=== PATIENT | female | born 1955 | race Caucasian/White ===

== ENCOUNTER 2017-06-24 07:23 | Emergency (ER) | payer OTHER ==
[~2017-06-24 07:23] MED LIST: DULE100A PO
[2017-06-24 07:29] VITALS: BP 181/88; PULSE 88; RESP 18; TEMP 97.4; O2SAT 99
--- NOTE | 2017-06-24 07:41 | PD ---
HPI Chief Complaint: Respiratory Symptoms Time Seen by Provider: 07:34 Travel History International Travel<30 days: No Contact w/Intl Traveler<30days: No Traveled to known affect area: No History of Present Illness HPI c/o wheezing, slighly onset this morning, very mild per patient but decided to come in because she doesn't have inhalers available at home any more. patient states greatly improved with nebulizers or inhalers. aggravated by changes in weather or pollen/seasonal allergies. pt denies assoc symptoms of fever/n/v/d/ no prod cough/no cp/no abd pain/no back pain. all:nkda pcp:none currently pmhx:asthma PFSH Past Medical History Asthma: Yes Diminished Hearing: No Respiratory: Yes Influenza Vaccination: No ?: Not Menopausal: Yes Past Surgical History Section: Yes Gynecologic Surgery: Yes () Social History Alcohol Use: No Tobacco Use: No Substance Use: No Allergies-Medications (Allergen,Severity, Reaction): Coded Allergies: No Known Allergies (Unverified Adverse Reaction, Unknown, 06/24/17) Reported Meds & Prescriptions Reported Meds & Active Scripts Active Doxycycline Hyclate 100 Mg Cap 100 Mg PO BID 3 Days Ventolin Hfa 18 GM Inh (Albuterol Sulfate) 90 Mcg/Act Aer 1 Puff INH Q4H PRN Medrol Dosepak (Methylprednisolone) 4 Mg Dspk 4 Mg PO DIRECTED Per Pharmacist direction Review of Systems General / Constitutional: No: Fever Eyes: No: Visual changes HENT: No: Headaches Cardiovascular: No: Chest Pain or Discomfort Respiratory: Positive: Wheezing Gastrointestinal: No: Abdominal Pain Genitourinary: No: Dysuria Musculoskeletal: No: Pain Skin: No Rash Neurologic: No: Weakness Psychiatric: No: Depression Endocrine: No: Polydipsia Hematologic/Lymphatic: No: Easy Bruising Physical Exam Narrative GENERAL: SKIN: Warm and dry. HEAD: Atraumatic. Normocephalic. EYES: Pupils equal and round. No scleral icterus. No injection or drainage. ENT: No nasal bleeding or discharge. Mucous membranes pink and moist. NECK: Trachea midline. No JVD. CARDIOVASCULAR: Regular rate and rhythm. RESPIRATORY: No accessory muscle use. minimal scattered wheezing present but with good tidal volume GASTROINTESTINAL: Abdomen soft, non-tender, nondistended. MUSCULOSKELETAL: Extremities without clubbing, cyanosis, or edema. No obvious deformities. NEUROLOGICAL: Awake and alert. No obvious cranial nerve deficits. Motor grossly within normal limits. Five out of 5 muscle strength in the arms and legs. Normal speech. PSYCHIATRIC: Appropriate mood and affect; insight and judgment normal. Data Data Last Documented VS Vital Signs Date Time Temp Pulse Resp B/P (MAP) Pulse Ox O2 Delivery O2 Flow Rate FiO2 06/24/17 07:30 18 99 06/24/17 07:29 97.4 88 181/88 (119) Orders Orders Chest, Single Ap (06/24/17 07:34) Prednisone (Deltasone) (06/24/17 07:45) Albuterol-Ipratropium Neb (Duoneb Neb) (06/24/17 07:45) Ed Discharge Order (06/24/17 07:52) [facility] Medical Decision Making Medical Screen Exam Complete: Yes Emergency Medical Condition: Yes Medical Record Reviewed: Yes Differential Diagnosis uri v asthma exac v pna Narrative Course patient lacked uri type symptoms as per hpi, cxr neg for consolidation/ptx, pt condition most consistent with asthma flare up (mild).....on reevaluation, lung gudino fully cleared, pulse ox 99%ra, able to ambulate without any difficulty or worsening of sob. Diagnosis Primary Impression: Mild asthma exacerbation Patient Instructions: Asthma (ED), General Instructions Scripts Doxycycline Hyclate (Doxycycline Hyclate) 100 Mg Cap 100 MG PO BID for Infection for 3 Days, #6 CAP 0 Refills Prov: Lawrence Solomon MD 06/24/17 Albuterol 18 GM Inh (Ventolin Hfa 18 GM Inh) 90 Mcg/Act Aer 1 PUFF INH Q4H Y for SHORTNESS OF BREATH, #1 INHALER 0 Refills Prov: Lawrence Solomon MD 06/24/17 Methylprednisolone Dosepak (Medrol Dosepak) 4 Mg Dspk 4 MG PO DIRECTED, #1 DSPK 0 Refills Per Pharmacist direction Prov: Lawrence Solomon MD 06/24/17 Disposition: 01 DISCHARGE HOME Condition: Stable Lawrence Solomon MD Jun 24, 2017 07:41
[2017-06-24] MEDS ORDERED: DOXY100C PO (07:45)
[2017-06-24] MEDS ORDERED: RESP: ALBUTEROL 2.5 MG/IPRATROPIUM 0.5 MG NEB (SCH) INH ONE (07:45)
[2017-06-24] MEDS ORDERED: VENTAER INH (07:45)
[2017-06-24] MEDS ORDERED: predniSONE 20 MG TAB PO ONE (07:45)
[2017-06-24] MEDS ORDERED: MEDR4PAK PO (07:45)
--- NOTE | 2017-06-24 07:53 | RADRPT ---
EXAM DATE/TIME: 06/24/2017 07:42 [place] COMPARISON: No previous studies available for comparison. INDICATIONS : Short of breath MEDICAL HISTORY : asthma SURGICAL HISTORY : None. ENCOUNTER: Initial ACUITY: 1 day PAIN SCORE: 0/10 LOCATION: Bilateral chest FINDINGS: A single view of the chest demonstrates the lungs to be symmetrically aerated without evidence of mas s, infiltrate or effusion. The cardiomediastinal contours are unremarkable. Osseous structures are intact. CONCLUSION: No acute disease. Jacoby Weber MD on June 24, 2017 at 7:51 Board Certified Radiologist. This report was verified electronically.
[2017-06-24 07:56] VITALS: BP 169/71
== END 2017-06-24 08:08 | disposition home or self-care (01) ==
LOC: PHED 07:23
DX: J45.901 Unspecified asthma with (acute) exacerbation (principal)
CPT/HCPCS: 71010; 94664; 99284; J7512